=== PATIENT | male | born 1940 | race Caucasian/White ===

== ENCOUNTER 2017-07-25 10:58 | Emergency (ER) | payer MEDICARE ==
[~2017-07-25] VITALS: Ht 175.3 cm; Wt 68.0 kg
[~2017-07-25 10:58] MED LIST: BUPR10DI TOP; CELE200C PO; DILT240C PO; FLUT110A INH; GABA-497 PO; HYDR-4683 PO; LIDO5DIS21 TOP; LISI-646 PO; LOVA40TA72 PO; LUBI24CA6 PO; NALO1TAB2 PO; OMEP20CA74 PO; OXY10CRT PO; TRIA75TA55 PO; ZOLP10TA6 PO
[2017-07-25 11:43] LABS: Basophils # (auto) 0.1 uL; Basophils % (auto) 1.1 % (0.0-2.0); Eosinophils # (auto) 0.2 uL; Eosinophils % (auto) 2.2 % (0.0-7.0); Hemoglobin 10.3 g/dL (13.5-17.5); Lymphocytes # (auto) 0.3 uL; Mean Corpuscular Hemoglobin 29.6 pg (28.0-32.0); Mean Corpuscular Hgb Conc. 34.3 g/dL (32.0-36.0); Mean Corpuscular Volume 86.4 fL (80.0-100.0); Mean Platelet Volume 5.3 fL (6.9-10.8); Monocytes # (auto) 0.8 uL; Monocytes % (auto) 9.9 % (0.0-12.0); Neutrophils # (auto) 6.9 uL; Neutrophils % (auto) 82.8 % (37.0-80.0); Platelet Count (auto) 438 10^3/uL (140-450); Red Cell Distribution Width 15.3 % (11.8-14.3); White Blood Cell 8.3 10^3/uL (4.4-10.8)
[2017-07-25 12:07] LABS: Albumin 2.1 g/dL (3.4-5.0); Alkaline Phosphatase 153 U/L (45-117); Anion Gap 7 (5-15); Aspartate Aminotransferase 11 U/L (15-37); BUN/Creatinine Ratio 14.1; Bilirubin, Total 0.2 mg/dL (0.2-1.0); Blood Urea Nitrogen 10 mg/dL (7-18); Calcium 9.4 mg/dL (8.5-10.1); Carbon Dioxide 28 mmol/L (21-32); Chloride 98 mmol/L (98-107); GFR African American 139 mL/min; GFR Non-African American 115 mL/min; Glucose 128 mg/dL (74-106); Magnesium 2.1 mg/dL (1.6-2.6); Potassium 3.7 mmol/L (3.5-5.1); Sodium 133 mmol/L (136-145); Total Protein 6.6 g/dL (6.4-8.2)
[2017-07-25 13:48] VITALS: BP 117/56
== END 2017-07-25 15:33 | disposition home or self-care (01) ==
LOC: EDBD 10:58 → ER 10:58
DX: R07.9 Chest pain, unspecified (principal); I10 Essential (primary) hypertension; Z88.0 Allergy status to penicillin
CPT/HCPCS: 36415; 71010; 80053; 83735; 84484; 85025; 93005